=== PATIENT | female | born 1975 | race Caucasian/White ===

== ENCOUNTER 2016-11-24 20:45 | Emergency (ER) | payer MEDICARE, MEDICAID ==
[2016-11-24] MEDS ORDERED: GLUCAGON 1 MG/VIAL IV ONE (21:15)
[2016-11-24 21:27] LABS: BASO % 0.3 % (0-6); EOS % 1.3 % (0-6); GRAN % 64.7 % (47-80); HEMOGLOBIN 14.8 gm/dl (11.6-16.0); LYMPH % 25.6 % (16-45); MEAN CELL VOLUME 89.4 fl (81-97); MEAN CORPUSCULAR HEMOGLOBIN 30.8 pg (27-33); MEAN CORPUSCULAR HGB CONC 34.4 g/dl (32-36); MEAN PLATELET VOLUME 10.6 fl (7.4-10.4); MONO % 8.1 % (0-9); PLATELET COUNT 307 K/uL (130-400); RED BLOOD COUNT 4.81 M/uL (3.80-5.40); RED CELL DISTRIBUTION WIDTH 12.8 % (11.5-14.5); WHITE BLOOD COUNT W/O DIFF 11.2 K/uL (4.2-12.2)
[2016-11-24 21:38] LABS: ALB/GLOB RATIO 1.4 (1.1-1.8); ALBUMIN 4.6 gm/dL (3.5-5.0); ALKALINE PHOSPHATASE 91 U/L (38-126); ALT/SGPT 25 U/L (9-52); AST/SGOT 19 U/L (14-36); BILIRUBIN,TOTAL 1.13 mg/dL (0.2-1.3); BLOOD UREA NITROGEN 16 mg/dL (7-17); CREATININE 0.7 mg/dL (0.52-1.04); EST GLOMERULAR FILTRATION RATE > 60 ml/min; GLUCOSE,RANDOM 92 mg/dL (70-110)
[2016-11-24] MEDS ORDERED: SIMETH/SOD BICARB/CIT AC EFF PKT PO ONE (21:48)
--- NOTE | 2016-11-24 21:53 | Emergency Department Record ---
History of Present Illness - General Chief Complaint: Shortness of breath Stated Complaint: ANA MARÍA/FEELS LIKE SOMETHING IS CAUGHT Time Seen by Provider: 11/24/16 21:11 Source: Patient Mode of Arrival: Ambulatory Limitations: No limitations - History of Present Illness Initial Comments: pt states she has felt like there is an obstruction in her esophagus for 2 days. she states it is painful and hurts to swallow. she states that if she does swallow water it hurts or doesnt go down. she states she had steak to eat 2 hrs prior to this starting. she has never had this happen before MD Complaint: Chest pain Onset/Timin -: Days(s) Severity scale (1-10): 7 Quality: Aching Improves With: Nothing Worsens With: Coughing, Eating, Inspiration Context: Suspect foreign body Associated Symptoms: Chest pain Treatments Prior to Arrival: None - Related Data Home Medications Medication Instructions Recorded Confirmed Last Taken Clonazepam 2 mg PO TID 06/01/14 11/24/16 1 Day Ago Paroxetine HCl [Paxil Cr] 37.5 mg PO DAILY 06/01/14 11/24/16 1 Day Ago Ondansetron HCl [Zofran] 4 mg PO Q12H PRN 02/16/15 11/24/16 1 Day Ago Topiramate 200 mg PO BID 06/28/16 11/24/16 Unknown Previous Rx's Medication Instructions Recorded Magnesium Hydroxide/Al Hydrox 30 ml PO Q4H PRN #0 oral.susp 06/28/16 [Maalox] Diazepam [Valium] 5 mg PO Q8H #10 tab 11/25/16 Hydrocodone/Acetaminophen [[place] 1 tab PO Q6H PRN #10 tab 11/25/16 5mg/325mg] Allergies Allergy/AdvReac Type Severity Reaction Status Date / Time iodine [IODINE] Allergy Unknown ANAPHYLAXIS Verified 06/27/16 18:11 shellfish derived Allergy RASH Verified 06/27/16 18:11 Travel Screening - Travel/Exposure Within Last 30 Days Have you traveled within the last 30 days?: No Review of Systems Reviewed: No additional complaints except as noted below Constitutional: Reports: As per HPI. Denies: Chills, Fever, Malaise, Night sweats, Weakness, Weight change Eyes: Reports: As per HPI. Denies: Eye discharge, Eye pain, Photophobia, Vision change ENT: Reports: As per HPI. Denies: Congestion, Dental pain, Ear pain, Epistaxis , Hearing loss, Throat pain Respiratory: Reports: As per HPI. Denies: Cough, Dyspnea, Hemoptysis, Stridor, Wheezes Cardiovascular: Reports: As per HPI. Denies: Arrhythmia, Chest pain, Dyspnea on exertion, Edema, Murmurs, Orthopnea, Palpitations, Paroxysmal nocturnal dyspnea, Rheumatic Fever, Syncope Endocrine: Reports: As per HPI. Denies: Fatigue, Heat or cold intolerance, Polydipsia, Polyuria Gastrointestinal: Reports: As per HPI. Denies: Abdominal pain, Constipation, Diarrhea, Hematemesis, Hematochezia, Melena, Nausea, Vomiting Genitourinary: Reports: As per HPI. Denies: Abnormal menses, Discharge, Dyspareunia, Dysuria, Frequency, Hematuria, Incontinence, Retention, Urgency Musculoskeletal: Reports: As per HPI. Denies: Arthralgia, Back pain, Gout, Joint swelling, Myalgia, Neck pain Skin: Reports: As per HPI. Denies: Bruising, Change in color, Change in hair/ nails, Lesions, Pruritus, Rash Neurological: Reports: As per HPI. Denies: Abnormal gait, Confusion, Headache, Numbness, Paresthesias, Seizure, Tingling, Tremors, Vertigo, Weakness Psychiatric: Reports: As per HPI. Denies: Anxiety, Auditory hallucinations, Depression, Homicidal thoughts, Suicidal thoughts, Visual hallucinations Hematological/Lymphatic: Reports: As per HPI. Denies: Anemia, Blood Clots, Easy bleeding, Easy bruising, Swollen glands Past Medical History - SOCIAL HISTORY Smoking Status: Never smoker Alcohol Use: None Drug Use: Occassional Drug Use Detail:: Marijuana - RESPIRATORY Hx Respiratory Disorders: No - CARDIOVASCULAR Hx Cardio Disorders: No - NEURO Hx Neuro Disorders: Yes Hx Seizures: Yes - GI Hx GI Disorders: No - Hx Genitourinary Disorders: No - ENDOCRINE Hx Endocrine Disorders: No Hx Diabetes: No Hx Thyroid Disease: No - MUSCULOSKELETAL Hx Musculoskeletal Disorders: Yes Hx Fibromyalgia: Yes - PSYCH Hx Psych Problems: Yes Hx Anxiety: Yes Hx Depression: Yes - HEMATOLOGY/ONCOLOGY Hx Hematology/Oncology Disorders: No Family Medical History Any Significant Family History?: Yes Hx Cancer: Grandparents Hx Diabetes: Mother, Grandparents Hx Heart Disease: Father, Mother Physical Exam - General General Appearance: Alert, Oriented x3, Cooperative, Mild distress - Head Head exam: Normal inspection - Eye Eye exam: Normal appearance, PERRL, EOMI Pupils: Normal accommodation - ENT ENT exam: Normal exam, Mucous membranes moist, Normal external ear exam, Normal orophraynx, TM's normal bilaterally Ear exam: Normal external inspection. negative: External canal tenderness Nasal Exam: Normal inspection. negative: Discharge, Sinus tenderness Mouth exam: Normal external inspection, Tongue normal Teeth exam: Normal inspection. negative: Dental caries Throat exam: Normal inspection. negative: Tonsillar erythema, Tonsillar exudate - Neck Neck exam: Normal inspection, Full ROM. negative: Tenderness - Respiratory Respiratory exam: Normal lung sounds bilaterally. negative: Respiratory distress - Cardiovascular Cardiovascular Exam: Regular rate, Normal rhythm, Normal heart sounds - GI/Abdominal GI/Abdominal exam: Soft, Normal bowel sounds. negative: Tenderness - Rectal Rectal exam: Deferred - exam: Deferred - Extremities Extremities exam: Normal inspection, Full ROM, Normal capillary refill. negative: Tenderness - Back Back exam: Reports: Normal inspection, Full ROM. Denies: Muscle spasm, Rash noted, Tenderness - Neurological Neurological exam: Alert, CN II-XII intact, Normal gait, Oriented X3 - Psychiatric Psychiatric exam: Normal affect, Normal mood - Skin Skin exam: Dry, Intact, Normal color, Warm Course Vital Signs 11/24/16 20:52 Temperature 98.1 F Pulse Rate 95 H Respiratory 18 Rate Blood Pressure 152/111 Pulse Ox 97 Medical Decision Making - Lab Data Result diagrams: 11/24/16 21:20 11/24/16 21:20 Lab Results 11/24/16 11/24/16 Range/Units 21:20 21:20 WBC 11.2 (4.2-12.2) K/uL RBC 4.81 (3.80-5.40) M/uL Hgb 14.8 (11.6-16.0) gm/dl Hct 43.0 (35.0-47.0) % MCV 89.4 (81-97) fl MCH 30.8 (27-33) pg MCHC 34.4 (32-36) g/dl RDW 12.8 (11.5-14.5) % Plt Count 307 (130-400) K/uL MPV 10.6 H (7.4-10.4) fl Gran % 64.7 (47-80) % Lymphocytes % 25.6 (16-45) % Monocytes % 8.1 (0-9) % Eosinophils % 1.3 (0-6) % Basophils % 0.3 (0-6) % Sodium 136 (136-145) mmol/L Potassium 3.7 (3.5-5.1) mmol/L Chloride 103 (98-107) mmol/L Carbon Dioxide 24.0 (22-30) mmol/L Anion Gap 9.0 (7-16) BUN 16 (7-17) mg/dL Creatinine 0.7 (0.52-1.04) mg/dL Estimated GFR > 60 ml/min Random Glucose 92 (70-110) mg/dL Calcium 9.2 (8.5-10.1) mg/dL Total Bilirubin 1.13 (0.2-1.3) mg/dL AST 19 (14-36) U/L ALT 25 (9-52) U/L Alkaline Phosphatase 91 (38-126) U/L Total Protein 8.0 (6.3-8.2) gm/dL Albumin 4.6 (3.5-5.0) gm/dL Globulin 3.4 (1.4-4.8) gm/dL Albumin/Globulin Ratio 1.4 (1.1-1.8) Disposition Disposition: Discharge Clinical Impression: Radiculopathy Qualifiers: Spinal region: unspecified Qualified Code(s): M54.10 - Radiculopathy, site unspecified Disposition: Home, Self-Care Condition: (1) Good Instructions: Lumbar Radiculopathy (ED) Additional Instructions: follow up with family doctor. return sooner if worse.. have mri. Prescriptions: Hydrocodone/Acetaminophen [[place] 5mg/325mg] 1 tab PO Q6H PRN #10 tab PRN Reason: Pain - General Diazepam [Valium] 5 mg PO Q8H #10 tab Forms: Patient Portal Access
[2016-11-24] MEDS ORDERED: MAGNESIUM HYDROXIDE/AL HYDROX 30 ML, LIDOCAINE VISC 2% 200 MG PO ONE ×2 (22:38)
--- NOTE | 2016-11-25 00:11 | Emergency Department Record ---
History of Present Illness - General Chief Complaint: Shortness of breath Stated Complaint: ANA MARÍA/FEELS LIKE SOMETHING IS CAUGHT Time Seen by Provider: 11/24/16 21:11 Source: Patient Mode of Arrival: Ambulatory Limitations: No limitations - History of Present Illness Onset/Timin -: Days(s) Severity scale (1-10): 7 Quality: Aching Improves With: Nothing Worsens With: Coughing, Eating, Inspiration Context: Suspect foreign body Associated Symptoms: Chest pain Treatments Prior to Arrival: None - Related Data Home Medications Medication Instructions Recorded Confirmed Last Taken Clonazepam 2 mg PO TID 06/01/14 11/24/16 1 Day Ago Paroxetine HCl [Paxil Cr] 37.5 mg PO DAILY 06/01/14 11/24/16 1 Day Ago Ondansetron HCl [Zofran] 4 mg PO Q12H PRN 02/16/15 11/24/16 1 Day Ago Topiramate 200 mg PO BID 06/28/16 11/24/16 Unknown Previous Rx's Medication Instructions Recorded Magnesium Hydroxide/Al Hydrox 30 ml PO Q4H PRN #0 oral.susp 06/28/16 [Maalox] Allergies Allergy/AdvReac Type Severity Reaction Status Date / Time iodine [IODINE] Allergy Unknown ANAPHYLAXIS Verified 06/27/16 18:11 shellfish derived Allergy RASH Verified 06/27/16 18:11 Travel Screening - Travel/Exposure Within Last 30 Days Have you traveled within the last 30 days?: No Review of Systems Constitutional: Reports: As per HPI. Denies: Chills, Fever, Malaise, Night sweats, Weakness, Weight change Eyes: Reports: As per HPI. Denies: Eye discharge, Eye pain, Photophobia, Vision change ENT: Reports: As per HPI. Denies: Congestion, Dental pain, Ear pain, Epistaxis , Hearing loss, Throat pain Respiratory: Reports: As per HPI. Denies: Cough, Dyspnea, Hemoptysis, Stridor, Wheezes Cardiovascular: Reports: As per HPI. Denies: Arrhythmia, Chest pain, Dyspnea on exertion, Edema, Murmurs, Orthopnea, Palpitations, Paroxysmal nocturnal dyspnea, Rheumatic Fever, Syncope Endocrine: Reports: As per HPI. Denies: Fatigue, Heat or cold intolerance, Polydipsia, Polyuria Gastrointestinal: Reports: As per HPI. Denies: Abdominal pain, Constipation, Diarrhea, Hematemesis, Hematochezia, Melena, Nausea, Vomiting Genitourinary: Reports: As per HPI. Denies: Abnormal menses, Discharge, Dyspareunia, Dysuria, Frequency, Hematuria, Incontinence, Retention, Urgency Musculoskeletal: Reports: As per HPI. Denies: Arthralgia, Back pain, Gout, Joint swelling, Myalgia, Neck pain Skin: Reports: As per HPI. Denies: Bruising, Change in color, Change in hair/ nails, Lesions, Pruritus, Rash Neurological: Reports: As per HPI. Denies: Abnormal gait, Confusion, Headache, Numbness, Paresthesias, Seizure, Tingling, Tremors, Vertigo, Weakness Psychiatric: Reports: As per HPI. Denies: Anxiety, Auditory hallucinations, Depression, Homicidal thoughts, Suicidal thoughts, Visual hallucinations Hematological/Lymphatic: Reports: As per HPI. Denies: Anemia, Blood Clots, Easy bleeding, Easy bruising, Swollen glands Past Medical History - SOCIAL HISTORY Smoking Status: Never smoker Alcohol Use: None Drug Use: Occassional Drug Use Detail:: Marijuana - RESPIRATORY Hx Respiratory Disorders: No - CARDIOVASCULAR Hx Cardio Disorders: No - NEURO Hx Neuro Disorders: Yes Hx Seizures: Yes - GI Hx GI Disorders: No - Hx Genitourinary Disorders: No - ENDOCRINE Hx Endocrine Disorders: No Hx Diabetes: No Hx Thyroid Disease: No - MUSCULOSKELETAL Hx Musculoskeletal Disorders: Yes Hx Fibromyalgia: Yes - PSYCH Hx Psych Problems: Yes Hx Anxiety: Yes Hx Depression: Yes - HEMATOLOGY/ONCOLOGY Hx Hematology/Oncology Disorders: No Family Medical History Any Significant Family History?: Yes Hx Cancer: Grandparents Hx Diabetes: Mother, Grandparents Hx Heart Disease: Father, Mother Physical Exam - General Limitations: No limitations Course Vital Signs 11/24/16 20:52 Temperature 98.1 F Pulse Rate 95 H Respiratory 18 Rate Blood Pressure 152/111 Pulse Ox 97 - Reevaluation(s) Reevaluation #1: 11/25/16 00:46 pt is able to drink water Medical Decision Making - Lab Data Result diagrams: 11/24/16 21:20 11/24/16 21:20 Lab Results 11/24/16 11/24/16 Range/Units 21:20 21:20 WBC 11.2 (4.2-12.2) K/uL RBC 4.81 (3.80-5.40) M/uL Hgb 14.8 (11.6-16.0) gm/dl Hct 43.0 (35.0-47.0) % MCV 89.4 (81-97) fl MCH 30.8 (27-33) pg MCHC 34.4 (32-36) g/dl RDW 12.8 (11.5-14.5) % Plt Count 307 (130-400) K/uL MPV 10.6 H (7.4-10.4) fl Gran % 64.7 (47-80) % Lymphocytes % 25.6 (16-45) % Monocytes % 8.1 (0-9) % Eosinophils % 1.3 (0-6) % Basophils % 0.3 (0-6) % Sodium 136 (136-145) mmol/L Potassium 3.7 (3.5-5.1) mmol/L Chloride 103 (98-107) mmol/L Carbon Dioxide 24.0 (22-30) mmol/L Anion Gap 9.0 (7-16) BUN 16 (7-17) mg/dL Creatinine 0.7 (0.52-1.04) mg/dL Estimated GFR > 60 ml/min Random Glucose 92 (70-110) mg/dL Calcium 9.2 (8.5-10.1) mg/dL Total Bilirubin 1.13 (0.2-1.3) mg/dL AST 19 (14-36) U/L ALT 25 (9-52) U/L Alkaline Phosphatase 91 (38-126) U/L Total Protein 8.0 (6.3-8.2) gm/dL Albumin 4.6 (3.5-5.0) gm/dL Globulin 3.4 (1.4-4.8) gm/dL Albumin/Globulin Ratio 1.4 (1.1-1.8) Disposition Disposition: Discharge Clinical Impression: Esophageal obstruction Disposition: Home, Self-Care Condition: (1) Good Instructions: Esophageal Spasm (ED), Esophageal Stricture (ED) Additional Instructions: follow up with gi doctor sun without fail. return sooner if worse Referrals: VINCE HOLLIS [DOCTOR OF OSTEOPATH] - Forms: Patient Portal Access
[2016-11-25] MEDS ORDERED: AZITHROMYCIN 500 MG TABLET PO ONE (00:50)
--- NOTE | 2016-11-25 00:50 | Emergency Department Record ---
History of Present Illness - General Chief Complaint: Shortness of breath Stated Complaint: ANA MARÍA/FEELS LIKE SOMETHING IS CAUGHT Time Seen by Provider: 11/24/16 21:11 Source: Patient Mode of Arrival: Ambulatory Limitations: No limitations - History of Present Illness Onset/Timin -: Days(s) Severity scale (1-10): 7 Quality: Aching Improves With: Nothing Worsens With: Coughing, Eating, Inspiration Context: Suspect foreign body Associated Symptoms: Chest pain Treatments Prior to Arrival: None - Related Data Home Medications Medication Instructions Recorded Confirmed Last Taken Clonazepam 2 mg PO TID 06/01/14 11/24/16 1 Day Ago Paroxetine HCl [Paxil Cr] 37.5 mg PO DAILY 06/01/14 11/24/16 1 Day Ago Ondansetron HCl [Zofran] 4 mg PO Q12H PRN 02/16/15 11/24/16 1 Day Ago Topiramate 200 mg PO BID 06/28/16 11/24/16 Unknown Previous Rx's Medication Instructions Recorded Magnesium Hydroxide/Al Hydrox 30 ml PO Q4H PRN #0 oral.susp 06/28/16 [Maalox] Azithromycin [Zithromax] 250 mg PO DAILY #4 tab 11/25/16 Allergies Allergy/AdvReac Type Severity Reaction Status Date / Time iodine [IODINE] Allergy Unknown ANAPHYLAXIS Verified 06/27/16 18:11 shellfish derived Allergy RASH Verified 06/27/16 18:11 Travel Screening - Travel/Exposure Within Last 30 Days Have you traveled within the last 30 days?: No Review of Systems Constitutional: Reports: As per HPI. Denies: Chills, Fever, Malaise, Night sweats, Weakness, Weight change Eyes: Reports: As per HPI. Denies: Eye discharge, Eye pain, Photophobia, Vision change ENT: Reports: As per HPI. Denies: Congestion, Dental pain, Ear pain, Epistaxis , Hearing loss, Throat pain Respiratory: Reports: As per HPI. Denies: Cough, Dyspnea, Hemoptysis, Stridor, Wheezes Cardiovascular: Reports: As per HPI. Denies: Arrhythmia, Chest pain, Dyspnea on exertion, Edema, Murmurs, Orthopnea, Palpitations, Paroxysmal nocturnal dyspnea, Rheumatic Fever, Syncope Endocrine: Reports: As per HPI. Denies: Fatigue, Heat or cold intolerance, Polydipsia, Polyuria Gastrointestinal: Reports: As per HPI. Denies: Abdominal pain, Constipation, Diarrhea, Hematemesis, Hematochezia, Melena, Nausea, Vomiting Genitourinary: Reports: As per HPI. Denies: Abnormal menses, Discharge, Dyspareunia, Dysuria, Frequency, Hematuria, Incontinence, Retention, Urgency Musculoskeletal: Reports: As per HPI. Denies: Arthralgia, Back pain, Gout, Joint swelling, Myalgia, Neck pain Skin: Reports: As per HPI. Denies: Bruising, Change in color, Change in hair/ nails, Lesions, Pruritus, Rash Neurological: Reports: As per HPI. Denies: Abnormal gait, Confusion, Headache, Numbness, Paresthesias, Seizure, Tingling, Tremors, Vertigo, Weakness Psychiatric: Reports: As per HPI. Denies: Anxiety, Auditory hallucinations, Depression, Homicidal thoughts, Suicidal thoughts, Visual hallucinations Hematological/Lymphatic: Reports: As per HPI. Denies: Anemia, Blood Clots, Easy bleeding, Easy bruising, Swollen glands Past Medical History - SOCIAL HISTORY Smoking Status: Never smoker Alcohol Use: None Drug Use: Occassional Drug Use Detail:: Marijuana - RESPIRATORY Hx Respiratory Disorders: No - CARDIOVASCULAR Hx Cardio Disorders: No - NEURO Hx Neuro Disorders: Yes Hx Seizures: Yes - GI Hx GI Disorders: No - Hx Genitourinary Disorders: No - ENDOCRINE Hx Endocrine Disorders: No Hx Diabetes: No Hx Thyroid Disease: No - MUSCULOSKELETAL Hx Musculoskeletal Disorders: Yes Hx Fibromyalgia: Yes - PSYCH Hx Psych Problems: Yes Hx Anxiety: Yes Hx Depression: Yes - HEMATOLOGY/ONCOLOGY Hx Hematology/Oncology Disorders: No Family Medical History Any Significant Family History?: Yes Hx Cancer: Grandparents Hx Diabetes: Mother, Grandparents Hx Heart Disease: Father, Mother Physical Exam - General Limitations: No limitations Course Vital Signs 11/24/16 11/25/16 20:52 00:39 Temperature 98.1 F Pulse Rate 95 H Pulse Rate [ 89 Pulse Ox Probe] Respiratory 18 16 Rate Blood Pressure 152/111 Blood Pressure 128/85 [Right Arm] Pulse Ox 97 96 Medical Decision Making - Lab Data Result diagrams: 11/24/16 21:20 11/24/16 21:20 Lab Results 11/24/16 11/24/16 Range/Units 21:20 21:20 WBC 11.2 (4.2-12.2) K/uL RBC 4.81 (3.80-5.40) M/uL Hgb 14.8 (11.6-16.0) gm/dl Hct 43.0 (35.0-47.0) % MCV 89.4 (81-97) fl MCH 30.8 (27-33) pg MCHC 34.4 (32-36) g/dl RDW 12.8 (11.5-14.5) % Plt Count 307 (130-400) K/uL MPV 10.6 H (7.4-10.4) fl Gran % 64.7 (47-80) % Lymphocytes % 25.6 (16-45) % Monocytes % 8.1 (0-9) % Eosinophils % 1.3 (0-6) % Basophils % 0.3 (0-6) % Sodium 136 (136-145) mmol/L Potassium 3.7 (3.5-5.1) mmol/L Chloride 103 (98-107) mmol/L Carbon Dioxide 24.0 (22-30) mmol/L Anion Gap 9.0 (7-16) BUN 16 (7-17) mg/dL Creatinine 0.7 (0.52-1.04) mg/dL Estimated GFR > 60 ml/min Random Glucose 92 (70-110) mg/dL Calcium 9.2 (8.5-10.1) mg/dL Total Bilirubin 1.13 (0.2-1.3) mg/dL AST 19 (14-36) U/L ALT 25 (9-52) U/L Alkaline Phosphatase 91 (38-126) U/L Total Protein 8.0 (6.3-8.2) gm/dL Albumin 4.6 (3.5-5.0) gm/dL Globulin 3.4 (1.4-4.8) gm/dL Albumin/Globulin Ratio 1.4 (1.1-1.8) Disposition Clinical Impression: Esophageal obstruction Pneumonia Qualifiers: Pneumonia type: due to unspecified organism Laterality: left Lung location: lower lobe of lung Qualified Code(s): J18.1 - Lobar pneumonia, unspecified organism Disposition: Home, Self-Care Condition: (1) Good Instructions: Esophageal Stricture (ED), Esophageal Spasm (ED) Additional Instructions: follow up with gi doctor sun without fail. return sooner if worse Prescriptions: Azithromycin [Zithromax] 250 mg PO DAILY #4 tab Referrals: VINCE HOLLIS [DOCTOR OF OSTEOPATH] - Forms: Patient Portal Access
--- NOTE | 2016-11-26 14:04 | RADIOLOGY REPORT ---
EXAM: CHEST, TWO VIEWS HISTORY: PATIENT HAS CHEST PAIN. TECHNIQUE: Two views of the chest were provided along with the comparison study dated 06/27/16. FINDINGS: The cardiomediastinal silhouette is within normal limits for size and contour. The moises appear unremarkable. There is no radiographic evidence of a focal infiltrate or pleural effusion. No pneumothorax is noted. IMPRESSION: NO RADIOGRAPHIC EVIDENCE OF AN ACUTE INTRATHORACIC PROCESS. JOB NUMBER: [id number] [facility]
--- NOTE | 2016-11-26 14:55 | CT SCAN REPORT ---
EXAM: CT OF THE CHEST WITHOUT CONTRAST HISTORY: CHEST PAIN ON THE LEFT SIDE. TECHNIQUE: Sequential axial images were obtained from the thoracic inlet through the bilateral adrenal glands without intravenous contrast administration. Sagittal and coronal reformatted images were performed. FINDINGS: The heart and pericardium appears normal. There is no mediastinal or hilar lymphadenopathy. There is mild ground glass opacity in the left lung base. Pneumonitis is considered. No endobronchial lesions are appreciated. The visualized upper abdominal structures are grossly unremarkable. There is a low density lesion which is ill defined in the superior pole of the left kidney. IMPRESSION: 1. PATCHY GROUND GLASS OPACITY IN THE LEFT LUNG BASE. THIS MAY BE RELATED TO PNEUMONITIS. NO MEDIASTINAL OR HILAR LYMPHADENOPATHY. 2. ILL DEFINED LOW DENSITY LESION IN THE SUPERIOR POLE OF THE LEFT KIDNEY. JOB NUMBER: [id number] [facility]
== END 2016-11-25 01:02 | disposition home or self-care (01) ==
LOC: ER 20:45
DX: K22.2 Esophageal obstruction (principal); J18.1 Lobar pneumonia, unspecified organism
CPT/HCPCS: 99284 ×2; 96374; 85025; 80053; 71020; 71250; J1610

== ENCOUNTER 2017-04-26 08:26 | Emergency (ER) | payer MEDICARE, MEDICAID ==
[2017-04-26] MEDS ORDERED: ASPIRIN 325 MG TABLET PO ONE (08:35)
--- NOTE | 2017-04-26 08:36 | Emergency Department Record ---
History of Present Illness - General Stated Complaint: Chest Pain Time Seen by Provider: 04/26/17 08:27 Source: Patient Mode of Arrival: Ambulatory Limitations: No limitations - History of Present Illness Initial Comments: 41 yo female presents with chest pain that started last night. The pain started yesterday at 10am. The pain was mild initially. It is mid chest going to the back with. It gradually increased over time without ever going away. It has been constant. No vomiting but she has nausea. She has some sweating. She reports it is worse with laying down or taking deep breaths. No coughing. No fever or chills. No vomiting. No abdominal pain at this time. She has had gastritis in the past but this is different. She does have a remote history of DVT. There is a positive family history of CAD with her mother and father. She has epilepsy that has been under good control. She has had a contrast reaction in the past with throat closing, difficulty breathing in the past. PCP Ulisses Collins. Complaint: Chest pain -: Days(s) (1) Onset: During rest Pain Location: Substernal Pain Radiation: Back Severity scale (1-10): 9 Quality: Sharp Consistency: Constant Improves With: Leaning foward Worsens With: Inspiration, Other (deep breathing, laying back) Anginal Symptoms: Dyspnea Treatments Prior to Arrival: None - Related Data Home Medications Medication Instructions Recorded Confirmed Last Taken Clonazepam 2 mg PO TID 06/01/14 04/26/17 1 Day Ago ~04/25/17 Paroxetine HCl [Paxil Cr] 37.5 mg PO DAILY 06/01/14 04/26/17 1 Day Ago ~04/25/17 Ondansetron HCl [Zofran] 4 mg PO Q12H PRN 02/16/15 04/26/17 1 Day Ago ~04/25/17 Topiramate 200 mg PO BID 06/28/16 04/26/17 1 Day Ago ~04/25/17 Omeprazole [Prilosec] 20 mg PO DAILY 04/26/17 04/26/17 1 Day Ago ~04/25/17 Allergies Allergy/AdvReac Type Severity Reaction Status Date / Time iodine [IODINE] Allergy Unknown ANAPHYLAXIS Verified 04/26/17 08:33 shellfish derived Allergy RASH Verified 04/26/17 08:33 Review of Systems Constitutional: Denies: Chills, Fever, Malaise, Weakness Eyes: Denies: Eye discharge, Eye pain, Photophobia, Vision change ENT: Denies: Congestion, Throat pain Respiratory: Reports: Dyspnea. Denies: Stridor, Wheezes Cardiovascular: Reports: Chest pain. Denies: Arrhythmia, Palpitations, Syncope Endocrine: Denies: Fatigue, Polydipsia, Polyuria Gastrointestinal: Denies: Abdominal pain, Diarrhea, Nausea, Vomiting Genitourinary: Denies: Dysuria, Urgency Musculoskeletal: Denies: Arthralgia, Back pain, Neck pain Skin: Denies: Bruising, Change in color, Rash Neurological: Denies: Headache, Numbness, Weakness Psychiatric: Denies: Anxiety Hematological/Lymphatic: Denies: Easy bleeding, Easy bruising Past Medical History - SOCIAL HISTORY Drug Use: Occasional - RESPIRATORY Hx Respiratory Disorders: No - CARDIOVASCULAR Hx Cardio Disorders: No - NEURO Hx Neuro Disorders: Yes Hx Seizures: Yes - GI Hx GI Disorders: No - Hx Genitourinary Disorders: No - ENDOCRINE Hx Endocrine Disorders: No Hx Diabetes: No Hx Thyroid Disease: No - MUSCULOSKELETAL Hx Musculoskeletal Disorders: Yes Hx Fibromyalgia: Yes - PSYCH Hx Psych Problems: Yes Hx Anxiety: Yes Hx Depression: Yes - HEMATOLOGY/ONCOLOGY Hx Hematology/Oncology Disorders: No Family Medical History Hx Cancer: Grandparents Hx Diabetes: Mother, Grandparents Hx Heart Disease: Father, Mother Physical Exam - General General Appearance: Alert, Oriented x3, Cooperative, No acute distress Limitations: No limitations - Head Head exam: Normal inspection - Eye Eye exam: Normal appearance, PERRL. negative: Conjunctival injection, Periorbital swelling - ENT ENT exam: Normal exam, Mucous membranes moist Ear exam: Normal external inspection Nasal Exam: Normal inspection Mouth exam: Normal external inspection - Neck Neck exam: Normal inspection, Full ROM. negative: Tenderness - Respiratory Respiratory exam: Normal lung sounds bilaterally. negative: Prolonged expiratory, Rales, Respiratory distress, Rhonchi, Stridor, Wheezes - Cardiovascular Cardiovascular Exam: Regular rate, Normal rhythm, Normal heart sounds Peripheral Pulses: 2+: Radial (R), Radial (L) - GI/Abdominal GI/Abdominal exam: Soft. negative: Tenderness - Rectal Rectal exam: Deferred - exam: Deferred - Extremities Extremities exam: Normal inspection, Full ROM, Normal capillary refill. negative: Tenderness - Back Back exam: Reports: Normal inspection, Full ROM. Denies: Muscle spasm, Rash noted, Tenderness - Neurological Neurological exam: Alert, Normal gait, Oriented X3 - Psychiatric Psychiatric exam: Normal affect, Normal mood - Skin Skin exam: Dry, Intact, Normal color, Warm. negative: Cyanosis, Diaphoretic, Mottled Course - Reevaluation(s) Reevaluation #1: EMR reviewed 06/2016 Admission for Chest Pain. Negative Treadmill Stress test. 11/[address] questionable left sided ground glass appearance. Questionable Pneumonitis. EKG 08:27 NSR rate 105, intervals normal, axis left, ST no acute changes, mild artifact from shaking, No significant changes from 06/28/16 04/26/17 08:31 Reevaluation #2: The Troponin is negative The D-dimer is elevated at 0.52 (she does report a 2001 hx of PE) CXR was read as negative 04/26/17 09:45 EKG#2 NSR rate 92, intervals normal, axis left, ST no acute changes, no change on this EKG from #1 Ekg or prior EKGs on 06/27 or 06/28/16. 04/26/17 10:18 Reevaluation #3: I explained to the patient the labs including elevated D-dimer At [facility] there is no VQ scan availability She will likely need VQ, cardiology consultation possible ECHO and possible GI consult which is not available I explained that transfer is recommended. She agrees with transfer to [facility] for further work up 04/26/17 10:24 I LUIS A Ramos of the ED She accepts the patient for further work up in the ED with VQ and other consultations as needed 04/26/17 10:29 Medical Decision Making - Lab Data Result diagrams: 04/26/17 08:30 04/26/17 08:30 Disposition Disposition: Transfer Clinical Impression: Chest pain Qualifiers: Chest pain type: unspecified Qualified Code(s): R07.9 - Chest pain, unspecified Disposition: Home, Self-Care Transfer To: [facility] Reason For Transfer: VQ scan, consultation wit cardiology, GI Accepting Physician: Richard Time Discussed w/Accepting Physician: 10:31 Condition: (1) Good Time of Disposition: 10:30 Quality - Quality Measures Quality Measures: N/A - Blood Pressure Screening Does Patient Have Any of the Following: No Blood Pressure Classification: Normal BP Reading Systolic Measurement: 110 Diastolic Measurement: 72 Screening for High Blood Pressure: < Normal BP, F/U Not Required > [G8785]
[2017-04-26] MEDS ORDERED: MAGNESIUM HYDROXIDE/AL HYDROX 30 ML, LIDOCAINE VISC 2% 200 MG PO ONE ×2 (08:41)
[2017-04-26] MEDS ORDERED: ONDANSETRON HCL IV 4 MG/2 ML VIAL IVP ONE (08:43)
[2017-04-26 08:46] LABS: BASO % 0.4 % (0-6); EOS % 1.1 % (0-6); GRAN % 70.8 % (47-80); HEMATOCRIT 44.3 % (35.0-47.0); HEMOGLOBIN 15.2 gm/dl (11.6-16.0); LYMPH % 20.3 % (16-45); MEAN CELL VOLUME 88.1 fl (81-97); MEAN CORPUSCULAR HEMOGLOBIN 30.2 pg (27-33); MEAN CORPUSCULAR HGB CONC 34.3 g/dl (32-36); MEAN PLATELET VOLUME 10.7 fl (7.4-10.4); MONO % 7.4 % (0-9); PLATELET COUNT 338 K/uL (130-400); RED BLOOD COUNT 5.03 M/uL (3.80-5.40); RED CELL DISTRIBUTION WIDTH 12.8 % (11.5-14.5); WHITE BLOOD COUNT W/O DIFF 11.4 K/uL (4.2-12.2)
[2017-04-26 08:57] LABS: ALB/GLOB RATIO 1.4 (1.1-1.8); ALBUMIN 4.7 gm/dL (3.5-5.0); ALKALINE PHOSPHATASE 83 U/L (38-126); ALT/SGPT 41 U/L (9-52); ANION GAP 9.9 (7-16); AST/SGOT 24 U/L (14-36); BILIRUBIN,TOTAL 1.58 mg/dL (0.2-1.3); BLOOD UREA NITROGEN 12 mg/dL (7-17); CARBON DIOXIDE 23.1 mmol/L (22-30); CREATINE PHOSPHOKINASE 35 U/L (30-135); CREATININE 0.8 mg/dL (0.52-1.04); EST GLOMERULAR FILTRATION RATE > 60 ml/min; GLUCOSE,RANDOM 112 mg/dL (70-110); TOTAL PROTEIN 8.1 gm/dL (6.3-8.2)
[2017-04-26 09:11] LABS: CKMB < 0.2 ug/L (0-6); TROPONIN I < 0.012 ng/mL (0.00-0.034)
[2017-04-26 09:15] LABS: INR 0.94; PARTIAL THROMBOPLASTIN TIME 29.4 SECONDS (24.5-39.1); PROTHROMBIN TIME (PATIENT) 10.1 SECONDS (9.5-12.1)
[2017-04-26 09:16] LABS: D-DIMER 0.52 mg/L FEU (0-0.59)
[2017-04-26] MEDS ORDERED: MORPHINE SULFATE 5 MG/ML PFS IVP ONE (09:20)
[2017-04-26] MEDS ORDERED: DIPHENHYDRAMINE HCL IV 50 MG/ML VIAL IVP ONE (09:22)
[2017-04-26] MEDS ORDERED: PROMETHAZINE HCL 25 MG/ML VIAL IVP ONE (09:22)
[2017-04-26] MEDS: NITROGLYCERIN 0.4MG SL TABLET #25 BTL SL PRN ×2 (09:51→09:58)
[2017-04-26] MEDS ORDERED: HYDROMORPHONE HCL 1MG/ML **SYRINGE IVP ONE (10:36)
[2017-04-26] MEDS ORDERED: PANTOPRAZOLE SODIUM IV 40 MG VIAL IVP ONE (10:36)
--- NOTE | 2017-04-27 08:48 | RADIOLOGY REPORT ---
EXAM: CHEST, TWO VIEWS HISTORY: ACUTE MIDLINE CHEST PAIN. NO BLEEDING ULCERS. PNEUMONIA ONE MONTH AGO. NONSMOKER. TECHNIQUE: Two views of the chest were obtained. Comparison: Chest x-ray 11/24/16. FINDINGS: The lungs are clear. The cardiac silhouette, diaphragm, and osseous structures are unremarkable for age. IMPRESSION: NEGATIVE CHEST EXAMINATION. JOB NUMBER: [id number] MTDD
== END 2017-04-26 11:02 | disposition home or self-care (01) ==
LOC: ER 08:26
DX: R07.9 Chest pain, unspecified (principal); R11.0 Nausea; R06.00 Dyspnea, unspecified; R79.89 Other specified abnormal findings of blood chemistry; Z86.718 Personal history of other venous thrombosis and embolism
CPT/HCPCS: 99285 ×2; 96374; 96375; 82550; 85025; 85651; 85730; 85610; 86140; 82553; 84484; 80048; 80053; 85379; 71020; 93005; 93010; J2405; J2270; J1170; C9113; J1200; J2550

== ENCOUNTER 2017-08-05 10:27 | Emergency (ER) | payer MEDICARE, MEDICAID ==
--- NOTE | 2017-08-05 10:39 | Emergency Department Record ---
History of Present Illness - General Chief Complaint: Neck Injury/Pain Stated Complaint: neck pain Time Seen by Provider: 08/05/17 10:37 Source: Patient Mode of Arrival: Ambulatory Limitations: No limitations - History of Present Illness Initial Comments: The patient is here due to developing posterior neck pain after having a seizure 10 days ago. She denies falling or hitting her head but since has sharp stabbing pain to the superior posterior neck area. The patient states heat sometimes helps the pain. She denies any visual changes, arm or leg numbness, tingling or weakness. Additionally for the last 2 days she has had R flank pain also with possible hematuria. Now for the last day she has had dysuria and nausea with intermittent vomiting. The patient also denies any vaginal discharge or bleeding. MD Complaint: Neck injury, Neck pain Onset/Timin -: Days(s) Place: Home Radiation: Head Severity: Moderate Severity scale (1-10): 7 Quality: Aching Consistency: Constant Improves With: None Worsens With: None Treatments Prior to Arrival: Naproxen - Related Data Previous Rx's Medication Instructions Recorded Phenazopyridine HCl [Pyridium] 100 mg PO TID #6 tablet 08/05/17 Allergies Allergy/AdvReac Type Severity Reaction Status Date / Time iodine [IODINE] Allergy Unknown ANAPHYLAXIS Verified 08/05/17 10:34 shellfish derived Allergy RASH Verified 08/05/17 10:34 iv contrast Allergy RASH Uncoded 08/05/17 10:34 Travel Screening - Travel/Exposure Within Last 30 Days Have you traveled within the last 30 days?: No - Travel/Exposure Within Last Year Have you traveled outside the [place] in the last year?: No - Additonal Travel Details Have you been exposed to anyone with a communicable illness?: No - Travel Symptoms Symptom Screening: None Review of Systems Constitutional: Denies: Chills, Fever Eyes: Denies: Eye discharge ENT: Denies: Congestion Respiratory: Denies: Cough, Dyspnea Past Medical History - SOCIAL HISTORY Smoking Status: Never smoker Alcohol Use: None Drug Use: None - RESPIRATORY Hx Respiratory Disorders: No - CARDIOVASCULAR Hx Cardio Disorders: No - NEURO Hx Neuro Disorders: Yes Hx Seizures: Yes (last one 07/26/2017) - GI Hx GI Disorders: No Hx Reflux: Yes Comment:: gastritis - Hx Genitourinary Disorders: No - ENDOCRINE Hx Endocrine Disorders: No Hx Diabetes: No Hx Thyroid Disease: No - MUSCULOSKELETAL Hx Musculoskeletal Disorders: Yes Hx Fibromyalgia: Yes - PSYCH Hx Psych Problems: Yes Hx Anxiety: Yes Hx Depression: Yes - HEMATOLOGY/ONCOLOGY Hx Hematology/Oncology Disorders: No Family Medical History Any Significant Family History?: Yes Hx Cancer: Grandparents Hx Diabetes: Mother, Grandparents Hx Heart Disease: Father, Mother Physical Exam - General General Appearance: Alert, Oriented x3, Cooperative, No acute distress - Head Head exam: Atraumatic, Normocephalic, Normal inspection - Eye Eye exam: Normal appearance, PERRL, EOMI, Other (Neg papilledema: sharp optic discs.) - Neck Neck exam: Normal inspection, Full ROM, Tenderness (There is very reproducible tenderness to the posterior superior cervical muscles area.) - Respiratory Respiratory exam: Normal lung sounds bilaterally. negative: Respiratory distress - Cardiovascular Cardiovascular Exam: Regular rate, Normal rhythm, Normal heart sounds - GI/Abdominal GI/Abdominal exam: Soft, Normal bowel sounds. negative: Guarding, Organomegaly , Rebound, Rigid, Tenderness - Extremities Extremities exam: Normal inspection, Full ROM, Normal capillary refill. negative: Tenderness - Neurological Neurological exam: Alert, Normal gait, Oriented X3, Reflexes normal. negative: Abnormal gait, Altered, Motor sensory deficit - Psychiatric Psychiatric exam: Flat affect. negative: Anxious, Depressed Course - Reevaluation(s) Reevaluation #1: The patient is doing well. I did explain that the workup is all WNL's. We will add a muscle relaxer to her home pain medicines and will have her keep the appointment with her PCP for next week. Presently there is no abdominal or flank pain. I did offer the patient a pelvic exam for the vague dysuria symptoms but she is refusing. She denies any vaginal issues and would just like to see her PCP next week for recheck. 08/05/17 12:30 08/05/17 12:33 Medical Decision Making - Data Complexity MDM Data: Labs Ordered and/or Reviewed, X-Ray Ordered and/or Reviewed - Lab Data Result diagrams: 08/05/17 11:05 08/05/17 11:05 - Radiology Data Radiology results: Report reviewed (Head and Cervical CT: Neg for any acute changes.) Disposition Disposition: Discharge Clinical Impression: Cervical strain, acute Qualifiers: Encounter type: initial encounter Qualified Code(s): S16.1XXA - Strain of muscle, fascia and tendon at neck level, initial encounter Disposition: Home, Self-Care Condition: (2) Stable Instructions: Cervical Sprain (ED) Additional Instructions: Continue your home pain medicines and add the pyridium for the dysuria. Please keep the appointment with your PCP for next week. Return to the ER for any worsening symptoms. Prescriptions: Phenazopyridine HCl [Pyridium] 100 mg PO TID #6 tablet Forms: Patient Portal Access Time of Disposition: 12:33 Quality - Quality Measures Quality Measures: N/A - Blood Pressure Screening View Details: Yes Does Patient Have Any of the Following: No Blood Pressure Classification: Pre-Hypertensive BP Reading Systolic Measurement: 133 Diastolic Measurement: 79 Screening for High Blood Pressure: < Pre-Hypertensive BP, F/U Documented > [ G8950] Pre-Hypertensive Follow-up Interventions: Referral to alternative/primary care provider.
[2017-08-05] MEDS ORDERED: ONDANSETRON HCL IV 4 MG/2 ML VIAL IV ONE (10:45)
[2017-08-05] MEDS ORDERED: SODIUM CHLORIDE 0.9% 500 ML IV ONE (10:45)
[2017-08-05] MEDS ORDERED: KETOROLAC 30 MG/ML VIAL IVP ONE (10:46)
[2017-08-05 11:14] LABS: URINE APPEARANCE SL CLOUDY; URINE BILIRUBIN NEGATIVE (NEGATIVE); URINE BLOOD NEGATIVE (NEGATIVE); URINE COLOR YELLOW; URINE GLUCOSE (UA) NEGATIVE (NEGATIVE); URINE KETONE NEGATIVE (NEGATIVE); URINE LEUKOCYTE ESTERASE NEGATIVE (NEGATIVE); URINE NITRITE NEGATIVE (NEGATIVE); URINE PROTEIN NEGATIVE (NEGATIVE); URINE UROBILINOGEN 0.2 E.U./dL (0.20 - 1.00)
[2017-08-05 11:14] LABS: BASO % 0.5 % (0-6); EOS % 1.8 % (0-6); GRAN % 63.1 % (47-80); HEMATOCRIT 43.8 % (35.0-47.0); HEMOGLOBIN 14.9 gm/dl (11.6-16.0); LYMPH % 27.1 % (16-45); MEAN CELL VOLUME 88.3 fl (81-97); MEAN PLATELET VOLUME 10.3 fl (7.4-10.4); MONO % 7.5 % (0-9); PLATELET COUNT 336 K/uL (130-400); RED BLOOD COUNT 4.96 M/uL (3.80-5.40); RED CELL DISTRIBUTION WIDTH 12.7 % (11.5-14.5); WHITE BLOOD COUNT W/O DIFF 8.3 K/uL (4.2-12.2)
[2017-08-05 11:17] LABS: HCG,QUALITATIVE URINE NEGATIVE (NEGATIVE)
[2017-08-05 11:24] LABS: BLOOD UREA NITROGEN 10 mg/dL (6-20); CREATININE 0.6 mg/dL (0.5-0.9); EST GLOMERULAR FILTRATION RATE > 60 mL/min
[2017-08-05 11:25] LABS: TOTAL PROTEIN 7.2 g/dL (6.6-8.7)
[2017-08-05 11:27] LABS: GLUCOSE,RANDOM 103 mg/dL (74-109)
[2017-08-05 11:29] LABS: ALT/SGPT 25 U/L (<33)
[2017-08-05 11:30] LABS: ALBUMIN 4.1 g/dL (4.0-5.0); ALKALINE PHOSPHATASE 69 U/L (35-104); AST/SGOT 17 U/L (10.0-35.0); LIPASE 23 U/L (13-60)
[2017-08-05 11:31] LABS: BILIRUBIN,DIRECT < 0.2 mg/dL (0-0.3)
[2017-08-05] MEDS ORDERED: HYDROCODONE/APAP 5/325MG TABLET PO ONE (12:35)
--- NOTE | 2017-08-06 07:48 | CT SCAN REPORT ---
DATE: 08/05/2017 at 1127. EXAM: CT OF THE HEAD WITHOUT CONTRAST. HISTORY: Left posterior headache and neck pain ten days post seizure. TECHNIQUE: Routine noncontrast CT examination of the head. COMPARISON: CT of the head without contrast dated 02/16/2015. FINDINGS: The ventricles and subarachnoid spaces remain normal in size and configuration. No new area of abnormally increased or decreased attenuation is noted throughout the brain substance. No abnormal extra-axial fluid collection is seen. There is small, focal dural calcification redemonstrated in the lateral left frontoparietal region. Given differences in technique, this is not significantly changed. No skull fracture is identified. The visualized paranasal sinuses and mastoid air cells are clear. The orbits as visualized are unremarkable. IMPRESSION: 1. NO CT EVIDENCE OF AN ACUTE INTRACRANIAL ABNORMALITY WITHOUT SIGNIFICANT CHANGE IN THE BRAIN SINCE 02/16/2015. 2. REDEMONSTRATION OF A SMALL, FOCAL, PLEURAL-BASED CALCIFICATION IN THE LEFT FRONTOPARIETAL REGION. JOB NUMBER: [id number] MTDD
--- NOTE | 2017-08-06 07:56 | CT SCAN REPORT ---
DATE: 08/05/2017 at 1127. EXAM: CT OF THE CERVICAL SPINE WITHOUT CONTRAST. HISTORY: Left posterior headache and neck pain ten days postseizure. TECHNIQUE: Thin collimation helical CT examination of the cervical spine is performed in the axial plane without intravenous contrast. Coronal and sagittal reformatted images are generated and reviewed. COMPARISON: No prior imaging of the cervical spine available for comparison. Same-day noncontrast CT of the head. FINDINGS: There is normal bone mineralization. There is straightening of the normal cervical lordosis. The vertebral bodies are otherwise normal in alignment and height. No acute fracture, destructive bone lesion, or prevertebral soft tissue swelling is seen. There are mild multilevel degenerative discs/degenerative endplate changes most pronounced at the mid and upper levels without gross central canal stenosis. There is likely a tiny central disc protrusion at the C2-C3 level. The neural foramina are grossly patent, and the facet joints are maintained. There is partial calcification of the left ligamentum flavum at the C7-T1 level. IMPRESSION: 1. STRAIGHTENING OF THE NORMAL CERVICAL LORDOSIS LIKELY DUE TO POSITIONING OR MUSCLE SPASM. NO FRACTURE, SUBLUXATION, OR PREVERTEBRAL SOFT TISSUE SWELLING. 2. MILD MULTILEVEL DEGENERATIVE DISC/DEGENERATIVE ENDPLATE CHANGES WITHOUT CENTRAL CANAL STENOSIS. JOB NUMBER: [id number] [facility]
== END 2017-08-05 12:47 | disposition home or self-care (01) ==
LOC: ER 10:27
DX: S16.1XXA Strain of muscle, fascia and tendon at neck level, initial encounter (principal); R51 Headache; R30.0 Dysuria; R11.2 Nausea with vomiting, unspecified; X50.9XXA Other and unspecified overexertion or strenuous movements or postures, initial encounter; Y92.009 Unspecified place in unspecified non-institutional (private) residence as the place of occurrence of the external cause
CPT/HCPCS: 70450; 72125; 80048; 80076; 81003; 81025; 83690; 85025; 96374; 96375; 99284; J1885; J2405

== ENCOUNTER 2017-09-11 18:51 | Emergency (ER) | payer MEDICARE, MEDICAID ==
[2017-09-11] MEDS ORDERED: LORAZEPAM 2 MG/ML VIAL IV ONE (18:56)
[2017-09-11] MEDS ORDERED: 0.9 % SODIUM CHLORIDE 1,000 ML BAG IV ONE ×2 (19:07→20:37)
--- NOTE | 2017-09-11 19:13 | Emergency Department Record ---
History of Present Illness - General Chief Complaint: Seizures Stated Complaint: SEIZURE Time Seen by Provider: 09/11/17 18:55 Source: EMS Mode of Arrival: EMS - History of Present Illness Initial Comments: The patient was brought by EMS due to a seizure. They report she has a history of epilepsy. In field she was unresponsive moving arms with stiffness of arms and legs and body, followed by left arm shaking and clucking with her tongue just before wseizing. EMS gave 10 versed IM with no response, and 5 IV with seizures resolving as she arrived. BS in field l08. Sinus tach Onset/Timin -: Hour(s) - Related Data Previous Rx's Medication Instructions Recorded Phenazopyridine HCl [Pyridium] 100 mg PO TID #6 tablet 08/05/17 Allergies Allergy/AdvReac Type Severity Reaction Status Date / Time iodine [IODINE] Allergy Unknown ANAPHYLAXIS Verified 08/05/17 10:34 shellfish derived Allergy RASH Verified 08/05/17 10:34 iv contrast Allergy RASH Uncoded 08/05/17 10:34 Travel Screening - Travel/Exposure Within Last 30 Days Have you traveled within the last 30 days?: No - Travel/Exposure Within Last Year Have you traveled outside the [place] in the last year?: No - Additonal Travel Details Have you been exposed to anyone with a communicable illness?: No - Travel Symptoms Symptom Screening: None Review of Systems Reviewed: No additional complaints except as noted below Constitutional: Reports: As per HPI. Denies: Chills, Fever, Malaise, Night sweats, Weakness, Weight change Eyes: Reports: As per HPI. Denies: Eye discharge, Eye pain, Photophobia, Vision change ENT: Reports: As per HPI. Denies: Congestion, Dental pain, Ear pain, Epistaxis , Hearing loss, Throat pain Respiratory: Reports: As per HPI. Denies: Cough, Dyspnea, Hemoptysis, Stridor, Wheezes Cardiovascular: Reports: As per HPI. Denies: Arrhythmia, Chest pain, Dyspnea on exertion, Edema, Murmurs, Orthopnea, Palpitations, Paroxysmal nocturnal dyspnea, Rheumatic Fever, Syncope Endocrine: Reports: As per HPI. Denies: Fatigue, Heat or cold intolerance, Polydipsia, Polyuria Gastrointestinal: Reports: As per HPI. Denies: Abdominal pain, Constipation, Diarrhea, Hematemesis, Hematochezia, Melena, Nausea, Vomiting Genitourinary: Reports: As per HPI. Denies: Abnormal menses, Discharge, Dyspareunia, Dysuria, Frequency, Hematuria, Incontinence, Retention, Urgency Musculoskeletal: Reports: As per HPI. Denies: Arthralgia, Back pain, Gout, Joint swelling, Myalgia, Neck pain Skin: Reports: As per HPI. Denies: Bruising, Change in color, Change in hair/ nails, Lesions, Pruritus, Rash Neurological: Reports: As per HPI. Denies: Abnormal gait, Confusion, Headache, Numbness, Paresthesias, Seizure, Tingling, Tremors, Vertigo, Weakness Psychiatric: Reports: As per HPI. Denies: Anxiety, Auditory hallucinations, Depression, Homicidal thoughts, Suicidal thoughts, Visual hallucinations Hematological/Lymphatic: Reports: As per HPI. Denies: Anemia, Blood Clots, Easy bleeding, Easy bruising, Swollen glands Past Medical History - SOCIAL HISTORY Smoking Status: Unknown if ever smoked - RESPIRATORY Hx Respiratory Disorders: No - CARDIOVASCULAR Hx Cardio Disorders: No - NEURO Hx Neuro Disorders: Yes Hx Seizures: Yes (last one 07/26/2017) - GI Hx GI Disorders: No Hx Reflux: Yes Comment:: gastritis - Hx Genitourinary Disorders: No - ENDOCRINE Hx Endocrine Disorders: No Hx Diabetes: No Hx Thyroid Disease: No - MUSCULOSKELETAL Hx Musculoskeletal Disorders: Yes Hx Fibromyalgia: Yes - PSYCH Hx Psych Problems: Yes Hx Anxiety: Yes Hx Depression: Yes - HEMATOLOGY/ONCOLOGY Hx Hematology/Oncology Disorders: No Family Medical History Any Significant Family History?: Yes Hx Cancer: Grandparents Hx Diabetes: Mother, Grandparents Hx Heart Disease: Father, Mother Physical Exam - General General Appearance: Other (post ictal upon arrival) - Head Head exam: Atraumatic, Normal inspection - Eye Eye exam: Normal appearance, PERRL, EOMI. negative: Conjunctival injection, Nystagmus Pupils: Normal accommodation - ENT ENT exam: Normal exam, Mucous membranes moist, Normal external ear exam, Normal orophraynx, TM's normal bilaterally Ear exam: Normal external inspection. negative: External canal tenderness Nasal Exam: Normal inspection. negative: Discharge, Sinus tenderness Mouth exam: Normal external inspection, Tongue normal Teeth exam: Normal inspection. negative: Dental caries Throat exam: Normal inspection. negative: Tonsillar erythema, Tonsillar exudate - Neck Neck exam: Normal inspection, Full ROM. negative: Lymphadenopathy, Meningismus , Tenderness - Respiratory Respiratory exam: Normal lung sounds bilaterally. negative: Respiratory distress - Cardiovascular Cardiovascular Exam: Normal rhythm, Normal heart sounds, Tachycardia - GI/Abdominal GI/Abdominal exam: Soft, Normal bowel sounds. negative: Tenderness - Rectal Rectal exam: Deferred - exam: Deferred - Extremities Extremities exam: Normal inspection, Full ROM, Normal capillary refill, Tenderness (bilateral lower extremity muscle spasms with plantar flexion of feet with spasms) - Back Back exam: Reports: Normal inspection, Full ROM. Denies: Muscle spasm, Rash noted, Tenderness - Neurological Neurological exam: Alert, CN II-XII intact, Normal gait, Oriented X3, Reflexes normal. negative: Motor sensory deficit - Psychiatric Psychiatric exam: Normal affect, Normal mood - Skin Skin exam: Dry, Intact, Normal color, Warm Course Vital Signs 09/11/17 18:56 Pulse Rate 117 H Respiratory 20 Rate Blood Pressure 143/102 Pulse Ox 93 L - Reevaluation(s) Reevaluation #1: Patient is now conversive, stating her calf muscles have been in spasm and are hurting her. She is requesting toradol. 09/11/17 20:33 Reevaluation #2: ambulated to bathroom without difficulty. Patient is ready for discharge. She states she has not missed any medications. She is dressed and ready to go home wih family who is at bedside. 09/11/17 22:37 09/11/17 22:45 Medical Decision Making - Management Options MDM Management: No Additional Work-up Planned - Data Complexity MDM Data: Labs Ordered and/or Reviewed (UDS positive for benzos(prescdribed and given here) and marijuana. UA neg.), X-Ray Ordered and/or Reviewed ( Noncontrast Head CT: Negative per radiologist.) - Lab Data Result diagrams: 09/11/17 19:27 09/11/17 19:27 Disposition Disposition: Discharge Clinical Impression: Seizure Epilepsy Qualifiers: Epilepsy type: unspecified Intractability: not intractable Status epilepticus: without status epilepticus Qualified Code(s): G40.909 - Epilepsy, unspecified, not intractable, without status epilepticus Disposition: Home, Self-Care Condition: (1) Good Instructions: Recurrent Seizures in Adults (ED) Additional Instructions: Home with family. Do not drive. continue present medicines. follow up with PCP. Forms: Patient Portal Access Quality - Quality Measures Quality Measures: N/A - Blood Pressure Screening Does Patient Have Any of the Following: No Blood Pressure Classification: Hypertensive Reading Systolic Measurement: 143 Diastolic Measurement: 102 Screening for High Blood Pressure: < Pre-Hypertensive BP, F/U Documented > [ G8950] Pre-Hypertensive Follow-up Interventions: Follow-up with rescreen every year.
[2017-09-11] MEDS ORDERED: ACETAMINOPHEN 325 MG TAB PO ONE (19:30)
[2017-09-11] MEDS ORDERED: ONDANSETRON HCL IV 4 MG/2 ML VIAL IVP ONE (19:30)
[2017-09-11 19:35] LABS: BASO % 0.2 % (0-6); EOS % 1.8 % (0-6); GRAN % 65.6 % (47-80); LYMPH % 23.3 % (16-45); MEAN CELL VOLUME 88.6 fl (81-97); MEAN CORPUSCULAR HEMOGLOBIN 30.2 pg (27-33); MEAN CORPUSCULAR HGB CONC 34.1 g/dl (32-36); MEAN PLATELET VOLUME 9.9 fl (7.4-10.4); MONO % 9.1 % (0-9); PLATELET COUNT 287 K/uL (130-400); RED BLOOD COUNT 4.63 M/uL (3.80-5.40); RED CELL DISTRIBUTION WIDTH 12.6 % (11.5-14.5); WHITE BLOOD COUNT W/O DIFF 10.2 K/uL (4.2-12.2)
[2017-09-11 19:45] LABS: BLOOD UREA NITROGEN 15 mg/dL (6-20); CREATININE 0.8 mg/dL (0.5-0.9); EST GLOMERULAR FILTRATION RATE > 60 mL/min
[2017-09-11 19:46] LABS: TOTAL PROTEIN 6.9 g/dL (6.6-8.7)
[2017-09-11 19:48] LABS: GLUCOSE,RANDOM 86 mg/dL (74-109)
[2017-09-11 19:50] LABS: ALT/SGPT 14 U/L (<33); AST/SGOT 13 U/L (10.0-35.0)
[2017-09-11 19:51] LABS: ACETAMINOPHEN < 5.0 ug/mL (10.0-30.0); ALB/GLOB RATIO 1.4 (1.1-1.8); ALKALINE PHOSPHATASE 62 U/L (35-104); BILIRUBIN,DIRECT < 0.2 mg/dL (0-0.3); PHENYTOIN (DILANTIN) < 0.8 ug/mL (10.0-20.0); SALICYLATE 0.3 mg/dL (2.8-20); VALPROIC ACID (DEPAKENE) < 2.8 ug/mL (50.0-100.0)
[2017-09-11] MEDS ORDERED: KETOROLAC 30 MG/ML VIAL IVP ONE (20:33)
[2017-09-11 21:52] LABS: URINE APPEARANCE CLEAR; URINE BILIRUBIN NEGATIVE (NEGATIVE); URINE BLOOD NEGATIVE (NEGATIVE); URINE COLOR YELLOW; URINE GLUCOSE (UA) NEGATIVE (NEGATIVE); URINE KETONE NEGATIVE (NEGATIVE); URINE LEUKOCYTE ESTERASE NEGATIVE (NEGATIVE); URINE NITRITE NEGATIVE (NEGATIVE); URINE PROTEIN NEGATIVE (NEGATIVE); URINE UROBILINOGEN 0.2 E.U./dL (0.20 - 1.00)
[2017-09-11 21:54] LABS: HCG,QUALITATIVE URINE NEGATIVE (NEGATIVE)
[2017-09-11 21:59] LABS: AMPHETAMINE SCREEN URINE NOT DETECTED; BARBITURATE SCREEN URINE NOT DETECTED; BENZODIAZEPINE SCREEN URINE DETECTED; COCAINE SCREEN URINE NOT DETECTED; METHADONE SCREEN URINE NOT DETECTED; METHAMPHETAMINE SCREEN NOT DETECTED; OPIATE SCREEN URINE NOT DETECTED; OXYCODONE SCREEN URINE NOT DETECTED; PHENCYCLIDINE SCREEN URINE NOT DETECTED; PROPOXYPHENE SCREEN URINE NOT DETECTED; THC SCREEN URINE DETECTED; TRICYCLIC ANTIDEPRESSANT SCRN NOT DETECTED
--- NOTE | 2017-09-12 10:30 | CT SCAN REPORT ---
EXAM: HEAD CT HISTORY: SEIZURE, POSTERIOR HEADACHE. TECHNIQUE: Noncontrast head CT was obtained. Comparison: 08/05/17. FINDINGS: The ventricles and subarachnoid spaces are unremarkable. No mass or mass effect. No intra or extraaxial hemorrhage. No CT evidence for large acute territorial infarct. The sinuses are clear. There is a small focal dural calcification again identified on the left unchanged. IMPRESSION: NO MASS, HEMORRHAGE, OR ACUTE INTRACRANIAL PROCESS IDENTIFIED. JOB NUMBER: [id number] MTDD
== END 2017-09-11 22:50 | disposition home or self-care (01) ==
LOC: ER 18:51
DX: G40.909 Epilepsy, unspecified, not intractable, without status epilepticus (principal); R51 Headache; R52 Pain, unspecified
CPT/HCPCS: 99284 ×2; 96374; 96375; 96361; 85025; 80076; 80053; 81003; 81025; 80305; 80185; 80164; 70450; G0480 ×3; J1885; J2405; J2060; 80320; 80329; J7030

== ENCOUNTER 2018-04-05 17:10 | Emergency (ER) | payer MEDICARE, MEDICAID ==
--- NOTE | 2018-04-05 17:31 | Emergency Department Record ---
History of Present Illness - General Chief complaint: Bite Insect/other Stated complaint: INSECT BITE/INFECTION/FEVER/ Time Seen by Provider: 04/05/18 17:18 Source: Patient, RN notes reviewed Mode of Arrival: Ambulatory - History of Present Illness Initial comments: abscess on the chst between her breast and it drained spontaneously 2 days. She squeezed it tuesday when it drained 2 days ago. No fluctanate abcess palpated now and she has been using triple antibiotics and warm compresses. MD complaint: Abscess/boil Onset/Timin -: Days(s) Hx Tetanus Toxoid Vaccination: Yes Year of Tetanus Vaccination: unknown Location: Chest Quality: Other Consistency: Constant Improves with: None Worsens with: None Context: Recent camping Associated symptoms: Denies other symptoms Treatments Prior to Arrival: None - Related Data Previous Rx's Medication Instructions Recorded Cephalexin [Keflex] 500 mg PO QID #40 cap 04/05/18 Sulfamethoxazole/Trimethoprim 1 each PO BID #20 tablet 04/05/18 [Bactrim Ds Tablet] Allergies Allergy/AdvReac Type Severity Reaction Status Date / Time iodine [IODINE] Allergy Unknown ANAPHYLAXIS Verified 08/05/17 10:34 shellfish derived Allergy RASH Verified 08/05/17 10:34 iv contrast Allergy RASH Uncoded 08/05/17 10:34 Travel Screening - Travel/Exposure Within Last 30 Days Have you traveled within the last 30 days?: No Review of Systems Reviewed: No additional complaints except as noted below Constitutional: Reports: As per HPI. Denies: Chills, Fever, Malaise, Night sweats, Weakness, Weight change Eyes: Reports: As per HPI. Denies: Eye discharge, Eye pain, Photophobia, Vision change ENT: Reports: As per HPI. Denies: Congestion, Dental pain, Ear pain, Epistaxis , Hearing loss, Throat pain Respiratory: Reports: As per HPI. Denies: Cough, Dyspnea, Hemoptysis, Stridor, Wheezes Cardiovascular: Reports: As per HPI. Denies: Arrhythmia, Chest pain, Dyspnea on exertion, Edema, Murmurs, Orthopnea, Palpitations, Paroxysmal nocturnal dyspnea, Rheumatic Fever, Syncope Endocrine: Reports: As per HPI. Denies: Fatigue, Heat or cold intolerance, Polydipsia, Polyuria Gastrointestinal: Reports: As per HPI. Denies: Abdominal pain, Constipation, Diarrhea, Hematemesis, Hematochezia, Melena, Nausea, Vomiting Genitourinary: Reports: As per HPI. Denies: Abnormal menses, Discharge, Dyspareunia, Dysuria, Frequency, Hematuria, Incontinence, Retention, Urgency Musculoskeletal: Reports: As per HPI. Denies: Arthralgia, Back pain, Gout, Joint swelling, Myalgia, Neck pain Skin: Reports: As per HPI. Denies: Bruising, Change in color, Change in hair/ nails, Lesions, Pruritus, Rash Neurological: Reports: As per HPI. Denies: Abnormal gait, Confusion, Headache, Numbness, Paresthesias, Seizure, Tingling, Tremors, Vertigo, Weakness Psychiatric: Reports: As per HPI. Denies: Anxiety, Auditory hallucinations, Depression, Homicidal thoughts, Suicidal thoughts, Visual hallucinations Hematological/Lymphatic: Reports: As per HPI. Denies: Anemia, Blood Clots, Easy bleeding, Easy bruising, Swollen glands Past Medical History - SOCIAL HISTORY Smoking Status: Unknown if ever smoked - RESPIRATORY Hx Respiratory Disorders: No - CARDIOVASCULAR Hx Cardio Disorders: No - NEURO Hx Neuro Disorders: Yes Hx Seizures: Yes (last one 07/26/2017) - GI Hx GI Disorders: Yes Hx Reflux: Yes Comment:: gastritis - Hx Genitourinary Disorders: No - ENDOCRINE Hx Endocrine Disorders: No Hx Diabetes: No Hx Thyroid Disease: No - MUSCULOSKELETAL Hx Musculoskeletal Disorders: Yes Hx Fibromyalgia: Yes - PSYCH Hx Psych Problems: Yes Hx Anxiety: Yes Hx Depression: Yes - HEMATOLOGY/ONCOLOGY Hx Hematology/Oncology Disorders: No Family Medical History Any Significant Family History?: Yes Hx Cancer: Grandparents Hx Diabetes: Mother, Grandparents Hx Heart Disease: Father, Mother Physical Exam - General General Appearance: Alert, Oriented x3, Cooperative, No acute distress - Head Head exam: Normal inspection - Eye Eye exam: Normal appearance, PERRL Pupils: Normal accommodation - ENT ENT exam: Normal exam, Mucous membranes moist, Normal external ear exam, Normal orophraynx, TM's normal bilaterally Ear exam: Normal external inspection. negative: External canal tenderness Nasal Exam: Normal inspection. negative: Discharge, Sinus tenderness Mouth exam: Normal external inspection, Tongue normal Teeth exam: Normal inspection. negative: Dental caries Throat exam: Normal inspection. negative: Tonsillar erythema, Tonsillar exudate - Neck Neck exam: Normal inspection, Full ROM. negative: Tenderness - Respiratory Respiratory exam: Normal lung sounds bilaterally. negative: Respiratory distress - Cardiovascular Cardiovascular Exam: Regular rate, Normal rhythm, Normal heart sounds - GI/Abdominal GI/Abdominal exam: Soft, Normal bowel sounds. negative: Tenderness - Rectal Rectal exam: Deferred - exam: Deferred - Extremities Extremities exam: Normal inspection, Full ROM, Normal capillary refill. negative: Tenderness - Back Back exam: Reports: Normal inspection, Full ROM. Denies: Muscle spasm, Rash noted, Tenderness - Neurological Neurological exam: Alert, Normal gait, Oriented X3, Reflexes normal - Psychiatric Psychiatric exam: Normal affect, Normal mood - Skin Skin exam: Other (abscess which has drained already and red and tender on chest wall between breasts) Course Vital Signs 04/05/18 17:16 Temperature 98.8 F Pulse Rate 95 H Respiratory 20 Rate Blood Pressure 153/113 Pulse Ox 96 Disposition Clinical Impression: Cellulitis Qualifiers: Site of cellulitis: trunk Site of cellulitis of trunk: chest wall Qualified Code(s): L03.313 - Cellulitis of chest wall Disposition: Home, Self-Care Condition: (1) Good Instructions: Insect Bite or Sting (ED), Abscess (ED) Additional Instructions: follow up with family in 2 days warm compresses 6 times a day Prescriptions: Cephalexin [Keflex] 500 mg PO QID #40 cap Sulfamethoxazole/Trimethoprim [Bactrim Ds Tablet] 1 each PO BID #20 tablet Time of Disposition: 17:34 Quality - Quality Measures Quality Measures: N/A - Blood Pressure Screening Does Patient Have Any of the Following: No Blood Pressure Classification: Hypertensive Reading Systolic Measurement: 153 Diastolic Measurement: 113 Screening for High Blood Pressure: < First Hypertensive BP, F/U Documented > [ G8950] First Hypertensive Follow-up Interventions: Referral to alternative/primary care provider.
== END 2018-04-05 17:44 | disposition home or self-care (01) ==
LOC: ER 17:10
DX: L03.313 Cellulitis of chest wall (principal)
CPT/HCPCS: 99282

== ENCOUNTER 2018-10-30 10:36 | Emergency (ER) | payer MEDICARE, MEDICAID ==
[2018-10-30] MEDS ORDERED: 0.9 % SODIUM CHLORIDE 1,000 ML BAG IV ONE ×2 (10:47→14:07)
[2018-10-30] MEDS ORDERED: ONDANSETRON HCL IV 4 MG/2 ML VIAL IVP ONE (10:47)
--- NOTE | 2018-10-30 10:50 | Emergency Department Record ---
History of Present Illness - General Chief Complaint: Abdominal Pain Stated Complaint: ABD PAIN Time Seen by Provider: 10/30/18 10:38 Source: Patient Mode of Arrival: Ambulatory Limitations: No limitations - History of Present Illness Initial Comments: 43 yo female presents not feeling well for about three days. On Tuesday she began to develop nausea and hot flashes. She later developed a pain on the right side of the abdomen. The pain seems to come and go. She points to an area lateral to the umbilicus. She denies fever or diarrhea. She has periodic dry heaves. No rash. She still has an appendix. She reports she has had a hysterectomy. MD Complaint: Abdominal pain Onset/Timin -: Days(s) Location: RLQ Radiation: None Migration to: No migration Severity: Moderate Severity scale (1-10): 7 Consistency: Constant Improves With: Nothing Worsens With: Other Associated Symptoms: Anorexia, Nausea - Related Data Home Medications Medication Instructions Recorded Confirmed Last Taken Atorvastatin Calcium [Lipitor] 20 mg PO QHS 10/30/18 10/30/18 Unknown Hydrochlorothiazide [Hctz] 12.5 mg PO DAILY 10/30/18 10/30/18 10/30/18 Allergies Allergy/AdvReac Type Severity Reaction Status Date / Time iodine [IODINE] Allergy Unknown ANAPHYLAXIS Verified 10/30/18 10:45 shellfish derived Allergy RASH Verified 10/30/18 10:45 iv contrast Allergy RASH Uncoded 08/05/17 10:34 Travel Screening - Travel/Exposure Within Last 30 Days Have you traveled within the last 30 days?: No Review of Systems Constitutional: Reports: Malaise. Denies: Chills, Fever Eyes: Denies: Eye discharge ENT: Denies: Congestion, Ear pain, Epistaxis, Throat pain Respiratory: Denies: Cough, Dyspnea, Hemoptysis Cardiovascular: Denies: Chest pain, Palpitations, Syncope Endocrine: Denies: Fatigue Gastrointestinal: Reports: As per HPI, Abdominal pain, Nausea, Vomiting Genitourinary: Denies: Abnormal menses, Dysuria Musculoskeletal: Reports: Myalgia. Denies: Arthralgia, Back pain Skin: Denies: Bruising, Change in color, Rash Neurological: Denies: Headache, Weakness Psychiatric: Denies: Anxiety Hematological/Lymphatic: Denies: Blood Clots, Easy bleeding, Easy bruising, Swollen glands Past Medical History - SOCIAL HISTORY Smoking Status: Never smoker Alcohol Use: None Drug Use: Occasional Drug Use Detail:: Marijuana - RESPIRATORY Hx Respiratory Disorders: No - CARDIOVASCULAR Hx Cardio Disorders: No - NEURO Hx Neuro Disorders: Yes Hx Seizures: Yes (last one 07/26/2017) - GI Hx GI Disorders: Yes Hx Reflux: Yes Comment:: gastritis - Hx Genitourinary Disorders: No - ENDOCRINE Hx Endocrine Disorders: No Hx Diabetes: No Hx Thyroid Disease: No - MUSCULOSKELETAL Hx Musculoskeletal Disorders: Yes Hx Fibromyalgia: Yes - PSYCH Hx Psych Problems: Yes Hx Anxiety: Yes Hx Depression: Yes - HEMATOLOGY/ONCOLOGY Hx Hematology/Oncology Disorders: No Family Medical History Any Significant Family History?: Yes Hx Cancer: Grandparents Hx Diabetes: Mother, Grandparents Hx Heart Disease: Father, Mother Physical Exam - General General Appearance: Alert, Oriented x3, Cooperative, No acute distress Limitations: No limitations - Head Head exam: Atraumatic, Normal inspection - Eye Eye exam: Normal appearance, PERRL. negative: Conjunctival injection, Scleral icterus - ENT ENT exam: Normal exam, Mucous membranes moist, Normal orophraynx Ear exam: Normal external inspection Nasal Exam: Normal inspection Mouth exam: Normal external inspection - Neck Neck exam: Normal inspection - Respiratory Respiratory exam: Normal lung sounds bilaterally. negative: Respiratory distress - Cardiovascular Cardiovascular Exam: Regular rate, Normal rhythm, Normal heart sounds - GI/Abdominal GI/Abdominal exam: Soft, Normal bowel sounds, Tenderness (tender lateral to the umbilicus, soft otherwise and non tender otherwise) - Rectal Rectal exam: Deferred - exam: Deferred - Extremities Extremities exam: Normal inspection. negative: Pedal edema, Tenderness - Back Back exam: Reports: Normal inspection. Denies: CVA tenderness (R), CVA tenderness (L) - Neurological Neurological exam: Alert, Normal gait, Oriented X3. negative: Abnormal gait, Altered - Psychiatric Psychiatric exam: Normal affect, Normal mood. negative: Agitated, Anxious - Skin Skin exam: Dry, Intact, Normal color, Warm Course - Reevaluation(s) Reevaluation #1: 10/30/18 11:04 No acute changes on the CBC 10/30/18 11:21 The LFTs,BMP, and Lipase are normal 10/30/18 11:46 The UA is negative for any acute changes 10/30/18 13:[address] scan of the abdomen and pelvis is negative for any acute intra abdominal process Given the CT was negative. Pelvic US was also completed. 10/30/18 15:38 The pelvic US was reviewed. Surgically absent uterus. No abnormalities of the ovaries. Flow noted to both ovaries. 10/30/18 15:39 10/30/18 16:17 We discussed at length the labs, UA, CT and US results returning normal after 2 days of pain The pain is not completely gone. I offered several options including observation, transfer, close monitoring from home with very specific instructions to return or go to [facility] if worse, fever, vomiting. She thought about the options and elects to go home. She is very reliable and will return if any of the concerns arise. She will be referred to Dr Loco of general surgery as well. 10/30/18 16:28 The case was discussed with Dr Loco. We discussed the negative CT, US, Labs, UA. The patient will return or [place] [facility] [place] in consultation if worse before an outpatient office visit on Tuesday. Follow up 10:[address] Loco was scheduled. 10/30/18 17:08 Medical Decision Making - Lab Data Result diagrams: 10/30/18 10:50 10/30/18 10:50 Disposition Disposition: Discharge Clinical Impression: Abdominal pain Qualifiers: Abdominal location: right lower quadrant Qualified Code(s): R10.31 - Right lower quadrant pain Disposition: Home, Self-Care Condition: (1) Good Instructions: Abdominal Pain (ED) Additional Instructions: Return in the next 12-24 hours to the ER for a recheck if worse, any fever, uncontrolled pain, nausea, rash in the area or any new concerns or questions For the next 1-2 days liquid diet only, avoid fatty foods You have been referred to Dr Loco for follow up as well You have an appointment 10:15am on Tuesday at his [place] office Referrals: Marino Loco [DOCTOR OF OSTEOPATH] - Forms: Patient Portal Access Time of Disposition: 14:00 Quality - Quality Measures Quality Measures: N/A - Blood Pressure Screening Does Patient Have Any of the Following: Active Dx of HTN Blood Pressure Classification: Hypertensive Reading Systolic Measurement: 152 Diastolic Measurement: 97 Screening for High Blood Pressure: Patient Exclusion, Hx of HTN [G9744]
[2018-10-30] MEDS ORDERED: KETOROLAC 30 MG/ML VIAL IVP ONE (11:00)
[2018-10-30 11:02] LABS: BASO % 0.6 % (0-6); EOS % 3.6 % (0-6); GRAN % 40.1 % (47-80); HEMATOCRIT 46.9 % (35.0-47.0); HEMOGLOBIN 15.5 gm/dl (11.6-16.0); LYMPH % 47.4 % (16-45); MEAN CELL VOLUME 90.4 fl (81-97); MEAN CORPUSCULAR HEMOGLOBIN 29.9 pg (27-33); MEAN PLATELET VOLUME 10.4 fl (7.4-10.4); MONO % 8.3 % (0-9); PLATELET COUNT 306 K/uL (130-400); RED BLOOD COUNT 5.19 M/uL (3.80-5.40); RED CELL DISTRIBUTION WIDTH 13.3 % (11.5-14.5); WHITE BLOOD COUNT W/O DIFF 6.6 K/uL (4.2-12.2)
[2018-10-30 11:12] LABS: BLOOD UREA NITROGEN 12 mg/dL (6-20); CREATININE 0.6 mg/dL (0.5-0.9); EST GLOMERULAR FILTRATION RATE > 60 mL/min
[2018-10-30 11:13] LABS: LIPASE 37 U/L (13-60); TOTAL PROTEIN 7.8 g/dL (6.6-8.7)
[2018-10-30 11:15] LABS: GLUCOSE,RANDOM 102 mg/dL (74-109)
[2018-10-30 11:17] LABS: ALT/SGPT 21 U/L (<33)
[2018-10-30 11:18] LABS: ALB/GLOB RATIO 1.3 (1.1-1.8); ALBUMIN 4.4 g/dL (4.0-5.0); ALKALINE PHOSPHATASE 79 U/L (45-87); AST/SGOT 18 U/L (10.0-35.0)
[2018-10-30] MEDS ORDERED: PROMETHAZINE HCL 12.5 MG in 0.9 % SODIUM CHLORIDE 100ML 100 ML IVPB ONE (11:31)
[2018-10-30] MEDS ORDERED: ACETAMINOPHEN 1,000 MG/100 ML BTL IVPB ONE (11:32)
[2018-10-30 11:36] LABS: URINE APPEARANCE CLEAR; URINE BILIRUBIN NEGATIVE (NEGATIVE); URINE BLOOD NEGATIVE (NEGATIVE); URINE COLOR YELLOW; URINE GLUCOSE (UA) NEGATIVE (NEGATIVE); URINE KETONE NEGATIVE (NEGATIVE); URINE LEUKOCYTE ESTERASE NEGATIVE (NEGATIVE); URINE NITRITE NEGATIVE (NEGATIVE); URINE PROTEIN TRACE (NEGATIVE); URINE UROBILINOGEN 0.2 E.U./dL (0.20 - 1.00)
[2018-10-30 11:38] LABS: HCG,QUALITATIVE URINE NEGATIVE (NEGATIVE)
[2018-10-30] MEDS ORDERED: MORPHINE SULFATE 10 MG/ML VIAL IVP ONE (14:06)
--- NOTE | 2018-10-31 13:54 | CT SCAN REPORT ---
EXAM: CT OF THE ABDOMEN AND PELVIS WITHOUT CONTRAST HISTORY: RIGHT LOWER QUADRANT PAIN WITH NAUSEA AND VOMITING FOR TWO DAYS. PRIOR CHOLECYSTECTOMY AND HYSTERECTOMY. PRIOR URINARY CALCIFICATIONS. TECHNIQUE: Following oral contrast administration, helical CT examination of the abdomen and pelvis was performed without intravenous contrast. Lack of IV contrast utilization limits evaluation of the solid viscera and bowel wall. Comparison: CT abdomen and pelvis without and with contrast dated 07/25/14. FINDINGS: There is mild dependent atelectasis within each lung base. No pleural or pericardial effusion. The heart is not enlarged. The liver, spleen, pancreas, and adrenal glands remain normal in appearance. The gallbladder is surgically absent and no biliary ductal dilatation is seen. There are hypodense masses questioned within the left kidney. The largest of these is located in the anteromedial mid kidney measuring 2.6 x 3.5 cm. This has a density of 18 Hounsfield units. It has not significantly changed in the interval. This is likely a benign cyst. A previously demonstrated hypodense mass in the lateral upper left kidney is not as well visualized, possibly smaller in size. There is a nonobstructing calculus in the lower pole of the right kidney somewhat linear in configuration measuring 5.5 mm. No other nephrolithiasis nor renal mass. No gross hydronephrosis. No definite ureteral calculus. Several small calcifications are scattered within the lower pelvis likely outside the ureters. No intrinsic urinary bladder abnormality. The uterus is surgically absent. No definite pelvic mass, lymphadenopathy, or free pelvic fluid. The ovaries are not enlarged. No gross bowel dilatation nor bowel wall thickening. The appendix is likely normal. The abdominal aorta is without aneurysmal dilatation. A small fat filled umbilical hernia is identified and there is a tiny fat filled periumbilical hernia just inferior to the umbilicus. These appear uncomplicated. No lytic or blastic bone lesion. Mild degenerative changes. IMPRESSION: 1. STATUS POST APPENDECTOMY AND HYSTERECTOMY. NO DEFINITE CT EVIDENCE OF AN ACUTE INTRAABDOMINAL NOR INTRAPELVIC PROCESS. HYPODENSE RENAL MASSES AGAIN IDENTIFIED. THESE ARE NONSPECIFIC, BUT LIKELY CYSTS. 2. 5.5 MM NONOBSTRUCTING RIGHT RENAL CALCULUS. 3. THE APPENDIX IS LIKELY NORMAL. 4. SMALL FAT FILLED UMBILICAL HERNIA AND TINY FAT FILLED PERIUMBILICAL HERNIA. THESE APPEAR UNCOMPLICATED. JOB NUMBER: [id number] [facility]
--- NOTE | 2018-10-31 14:00 | ULTRASOUND REPORT ---
EXAM: ULTRASOUND OF THE PELVIS WITH TRANSVAGINAL IMAGING HISTORY: RIGHT LOWER QUADRANT ABDOMINAL PAIN. SURGICAL ABSENCE OF THE UTERUS. 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 VAGINAL WALL BIOPSY ONE WEEK AGO. TECHNIQUE: Transabdominal ultrasound examination of the pelvis was performed. Transvaginal scanning was also performed for improved sensitivity. Comparison: Same day CT abdomen and pelvis without contrast. FINDINGS: TRANSABDOMINAL PELVIC ULTRASOUND: The uterus is surgically absent. The ovaries are not visualized transabdominally. No pelvic mass nor abnormal fluid collection. No intrinsic urinary bladder abnormality identified. TRANSVAGINAL PELVIC ULTRASOUND: The uterus is surgically absent. The right ovary is visualized and measures 2.3 x 1.5 x 1.2 cm. Small calcifications are questioned within the right ovary. The left ovary is visualized and normal in size measuring 2.1 x 1.6 x 1.9 cm. Blood flow is demonstrated in each ovary with color Doppler and Duplex Doppler evaluation. Spectral analysis demonstrates venous and arterial waveforms within the right ovary and a venous waveform in the left ovary. No pelvic mass nor free pelvic fluid. IMPRESSION: 1. SURGICAL ABSENCE OF THE UTERUS. 2. NO EVIDENCE OF OVARIAN TORSION. THERE ARE SMALL NONSPECIFIC CALCIFICATIONS WITHIN THE RIGHT OVARY. JOB NUMBER: [id number] [facility]
== END 2018-10-30 16:38 | disposition home or self-care (01) ==
LOC: ER 10:36
DX: R10.31 Right lower quadrant pain (principal); R11.0 Nausea
CPT/HCPCS: 99284 ×2; 96365; 96366; 96375; 96368; 83690; 85025; 80053; 81003; 81025; 76856; 76830; 74176; J1885; J2405; J2270; J2550; J7030